=== PATIENT | female | born 1995 | race Caucasian/White ===

== ENCOUNTER 2017-06-08 12:50 | Emergency (ER) | payer OTHER ==
[2017-06-08 12:55] VITALS: BP 121/71; BMI 36.3
--- NOTE | 2017-06-08 13:17 | DR.GENAD ---
HPI - PCP Primary Care Physician: MONICA - HPI Comment HPI Comment: HISTORY BELOW. - Complaint/Symptoms Chief Complaint Doctors Comments: LEFT FLANK AND BACK PAIN WITH NAUSEA AND VOMITING. SEEN IN L AND D IN [facility] TODAY. GIVEN MED AND DISCHARGE WITH PAIN MED. STILL HURTING. NO FEVER. DENIES ABDOMINAL PAIN OR VAGINAL BLEEDING. PATIENT IS BEING FEELING NORMAL MOVEMENT. Chief Complaint:: PATIENT HAS BEEN TO ER IN [place]. SHE STATED THAT SHE HAS PASTED OUT AND VOMITING. - Nurses notes reviewed Nurses Notes Review: Yes - Source History Provided: Patient - Mode of Arrival Mode of Arrival: Ambulatory - Timing Onset of Chief Complaint: 06/08/17 Came on: Suddenly - Duration Duration: Constant Duration: Days - Severity Severity: Moderate PMH - PMH Past Medical History: No Past Surgical History: Yes Surgical History: [employer]IVE Surgery - Family History History of Family Medical Conditions: Yes Family Medical History: Cancer, Hypertension - Social History Does patient currently use any type of tobacco product: No Have you used tobacco products in the last 12 months: No Type of Tobacco Use: None Does any household member use tobacco: No Alcohol Use: None Do you use any recreational Drugs:: No Lives With: Family Lives Where: Home - infectious screening In the last 2 months have you had wt loss of >10#?: NO Have you had fever, night sweats or hemotysis?: No Have you traveled outside the country in the last 6 months?: No Isolation: Standard ROS - Review of Systems Constitutional: Weakness, Fatigue Eyes: Blurred Vision. negative: Eye Pain, Discharge ENTM: No Symptoms Reported Respiratoy: No Symptoms Reported Cardiovascular: No Symptoms Reported Gastrointestinal/Abdominal: No Symptoms Reported Genitourinary: No Symptoms Reported Neurological: Weakness, Dizziness Musculoskeletal: Back Pain Integumentary: No Symptoms Reported Hematologic/Lymphatic: No Symptoms Reported Endocrine: No Symptoms Reported All Other Systems: Reviewed and Negative PE - Vital Signs Vitals: Temperature 97.5 F Pulse Rate 103 Respiratory Rate 20 Blood Pressure 121/71 O2 Sat by Pulse Oximetry 99 - General Limitations: No Limitations General Appearance: Alert - Head Head Exam: Normal Inspection - Eyes Eye exam: Normal Appearance - ENT ENT Exam: Normal External Ear Exam External Ear Exam: Normal External Inspection TM/Canal Exam: Bilateral Normal Nose Exam: Normal Nose Exam Mouth Exam: Normal Inspection Throat Exam: Normal Inspection - Neck Neck Exam: Trachea Midline - Chest Chest Inspection: Symmetric Chest Wall Rise - Respiratory Respiratory Exam: Normal Lung Sounds Bilat Respiratory Exam: Bilateral Clear to Auscultation - Cardiovascular Cardiovascular Exam: Regular Rate, Normal Rhythm, Normal Heart Sounds - Abdominal Exam Abdominal Exam: Normal Bowel Sounds, Soft. negative: Tenderness - Extremities Extremities Exam: Normal Inspection - Back Back Exam: (L) CVA Tenderness - Neurologic Neurological Exam: Alert, Oriented X3 - Psychiatric Psychiatric Exam: Anxious - Skin Skin Exam: Normal Color MDM - Differential Diagnosis Differential Diagnosis: BACK PAIN Course - Treatment Treatment: PAIN MED IN ED HERE, 1L NS IV BOLUS, MORPHIN AND ZOFRAN IV IN ED HERE. ABDOMINAL US DONE IN ED. PATIENT STILL IN PAIN. - Consultation Consultation Comments: DISCUSS PATIENT WITH DR. MENDEZ. PATIENT TO GO TO [facility] FOR FURTHER MANAGEMENT. - Education/Counseling Education/Counseling: Patient, Family, Education Educated On: Treatment, Diagnosis, Needs for Follow Up ROR - Labs Reviewed Laboratory Results Reviewed?: Yes Result Diagrams: 06/08/17 16:01 06/08/17 16:01 Laboratory: WBC 16.5 X10^3/uL (3.6-10.0) H 06/08/17 16:01 RBC 3.97 X10^6/uL (3.5-5.4) 06/08/17 16:01 Hgb 11.9 g/dL (12.0-16.0) L 06/08/17 16:01 Hct 34.2 % (36.0-47.0) L 06/08/17 16:01 MCV 86.1 fL (80.0-100.0) 06/08/17 16:01 MCH 30.0 pg (27.0-34.0) 06/08/17 16:01 MCHC 34.8 g/dL (33.0-35.0) 06/08/17 16:01 RDW 13.3 % (11.6-16.5) 06/08/17 16:01 Plt Count 283 X10^3/uL (150.0-450.0) 06/08/17 16:01 MPV 7.6 fL (7.4-11.0) 06/08/17 16:01 Neut % 87.5 % (42.0-75.0) H 06/08/17 16:01 Lymph % 7.5 % (21.0-51.0) L 06/08/17 16:01 [place] % 4.8 % (0.0-13.0) 06/08/17 16:01 Eos % 0.0 % (0.9-2.9) L 06/08/17 16:01 Baso % 0.2 % (0.2-1.0) 06/08/17 16:01 Neut # 14.4 x10^3/uL (2.2-4.8) H 06/08/17 16:01 Lymph # 1.2 X10^3/uL (1.3-2.9) L 06/08/17 16:01 Island # 0.8 x10^3/uL (0.3-0.8) 06/08/17 16:01 Eos # 0.0 x10^3/uL (0.0-0.2) 06/08/17 16:01 Baso # 0.0 X10^3/uL (0.0-0.1) 06/08/17 16:01 Absolute Nucleated RBC 0.0 /100WBC 06/08/17 16:01 Sodium 141 mmol/L (136-145) 06/08/17 16:01 Corrected Sodium TNP 06/08/17 16:01 Potassium 3.9 mmol/L (3.5-5.1) 06/08/17 16:01 Chloride 107 mmol/L (98-107) 06/08/17 16:01 Carbon Dioxide 25.0 mmol/L (21-32) 06/08/17 16:01 BUN 8 mg/dL (7-18) 06/08/17 16:01 Creatinine 0.67 mg/dL (0.55-1.02) 06/08/17 16:01 Est GFR (MDRD) Af Amer > 60 (>60) 06/08/17 16:01 Est GFR (MDRD) Non-Af > 60 (>60) 06/08/17 16:01 Glucose 88 mg/dL (65-99) 06/08/17 16:01 Calcium 8.7 mg/dL (8.5-10.1) 06/08/17 16:01 Corrected Calcium 9.8 mg/dL (8.5-10.1) 06/08/17 16:01 Total Bilirubin 0.30 mg/dL (0.2-1.0) 06/08/17 16:01 AST 14 Units/L (15-37) L 06/08/17 16:01 ALT 12 Units/L (12-78) 06/08/17 16:01 Alkaline Phosphatase 83 Units/L (46-116) 06/08/17 16:01 Total Protein 6.7 g/dL (6.4-8.2) 06/08/17 16:01 Albumin 2.6 g/dL (3.4-5.0) L 06/08/17 16:01 Globulin 4.1 g/dL (2.5-4.5) 06/08/17 16:01 Albumin/Globulin Ratio 0.6 Ratio (1.1-2.1) L 06/08/17 16:01 Specimen Type Clean catch urine 06/08/17 16:25 Urine Color Dark yellow (YELLOW) 06/08/17 16:25 Urine Appearance Clear (CLEAR) 06/08/17 16:25 Urine pH 6.0 (5.0 - 8.0) 06/08/17 16:25 Ur Specific [place] 1.020 (1.000-1.030) 06/08/17 16:25 Urine Protein 1+ (NEGATIVE) 06/08/17 16:25 Urine Glucose (UA) Negative (NEGATIVE) 06/08/17 16:25 Urine Ketones 3+ (NEGATIVE) 06/08/17 16:25 Urine Occult Blood 3+ (NEGATIVE) 06/08/17 16:25 Urine Nitrite Negative (NEGATIVE) 06/08/17 16:25 Urine Bilirubin Negative (NEGATIVE) 06/08/17 16:25 Urine Urobilinogen Normal (NORMAL) 06/08/17 16:25 Ur Leukocyte Esterase 1+ (NEGATIVE) 06/08/17 16:25 Urine RBC 15-25 /HPF (NEGATIVE) 06/08/17 16:25 Urine WBC 3-6 /HPF (NEGATIVE) 06/08/17 16:25 Ur Squamous Epith Cells Many /HPF (NEGATIVE) 06/08/17 16:25 Urine Bacteria 1+ /HPF (NEGATIVE) 06/08/17 16:25 Hyaline Casts Few /LPF (NEGATIVE) 06/08/17 16:25 Urine Mucus Moderate /HPF (NEGATIVE) 06/08/17 16:25 Ur Culture Indicated? No/not indicated 06/08/17 16:25 - XRAY XRAY Interpreted by: Radiologist XRAY Findings: REPORT DISCUSS WITH PATIENT. - Diagnosis Discharge Problem: Back pain affecting Qualifiers: Trimester: second trimester Qualified Code(s): O26.892 - Other specified related conditions, second trimester; M54.9 - Dorsalgia, unspecified Hematuria Qualifiers: Hematuria type: unspecified type Qualified Code(s): R31.9 - Hematuria, unspecified - Discharge Plan Disposition: HOME, SELF-CARE Condition: Stable - Follow ups/Referrals Follow ups/Referrals: CIPRIANO ANDERSON [Primary Care Provider] - 3 days - Instructions Instructions: Hematuria, Pediatric, Back Pain in Additional Instructions: RETURN TO ED IF WORSE. TO [facility] FOR DR. MENDEZ TO FOLLOW UP.
--- NOTE | 2017-06-08 14:25 | US ---
HISTORY: 26 weeks with left flank pain. Study: Complete abdominal ultrasound. Comparison: None. Technique: Multiple maldonado scale and color flow Doppler images of the abdomen were obtained. Findings: The liver is normal in echotexture. No intraparenchymal mass or intrahepatic biliary ductal dilatat ion can be identified. The gallbladder is unremarkable in its appearance. Reverberation artifact is seen over the gallbladder lumen on some sequences. The common bile duct is normal measuring 4 mm. The visualized portions of the pancreas and spleen are normal in their echotexture and size. The right and left kidney are normal in echotexture and size. The right kidney measures 8.6 cm. The left kidney measures 9.7 cm. Mild hydronephrosis of the left kidney. No obvious mass or obstructing stone. No hydronephrosis of the right kidney. The visualized portions of the abdominal aorta are normal in size without aneurysmal dilatation. Th e inferior vena cava is unremarkable as well. IMPRESSION: 1. Mild hydronephrosis of the left kidney without obvious obstructing stone or mass. This may be se condary to patient's . 2. Remaining exam is unremarkable. Reported By:
[2017-06-08] MEDS ORDERED: NS 1000 ML 1,000 ML ONE (14:39)
[2017-06-08] MEDS ORDERED: NS 1000 ML 1,000 ML IV ONE (15:48)
[2017-06-08 16:14] LABS: BASOPHILS % (AUTO) 0.2 % (0.2-1.0); HEMATOCRIT 34.2 % (36.0-47.0); HEMOGLOBIN 11.9 g/dL (12.0-16.0); LYMPHOCYTES # (AUTO) 1.2 X10^3/uL (1.3-2.9); LYMPHOCYTES % (AUTO) 7.5 % (21.0-51.0); MEAN CORPUSCULAR HGB CONC 34.8 g/dL (33.0-35.0); MEAN CORPUSCULAR VOLUME 86.1 fL (80.0-100.0); MEAN PLATELET VOLUME 7.6 fL (7.4-11.0); MONOCYTES # (AUTO) 0.8 x10^3/uL (0.3-0.8); MONOCYTES % (AUTO) 4.8 % (0.0-13.0); NEUTROPHILS # (AUTO) 14.4 x10^3/uL (2.2-4.8); NEUTROPHILS % (AUTO) 87.5 % (42.0-75.0); PLATELET COUNT 283 X10^3/uL (150.0-450.0); RED BLOOD COUNT 3.97 X10^6/uL (3.5-5.4); RED CELL DISTRIBUTION WIDTH 13.3 % (11.6-16.5); WHITE BLOOD COUNT 16.5 X10^3/uL (3.6-10.0)
[2017-06-08 16:27] LABS: ALANINE AMINOTRANSFERASE 12 Units/L (12-78); ALBUMIN 2.6 g/dL (3.4-5.0); ALKALINE PHOSPHATASE 83 Units/L (46-116); ASPARTATE AMINO TRANSFERASE 14 Units/L (15-37); BLOOD UREA NITROGEN 8 mg/dL (7-18); CALCIUM 8.7 mg/dL (8.5-10.1); CHLORIDE 107 mmol/L (98-107); COR CA(FOR HYPOALB) 9.8 mg/dL (8.5-10.1); CREATININE 0.67 mg/dL (0.55-1.02); GLUCOSE 88 mg/dL (65-99); SODIUM 141 mmol/L (136-145); TOTAL PROTEIN 6.7 g/dL (6.4-8.2); eGFR BLACK RACES > 60 (>60); eGFR NON BLACK RACES > 60 (>60)
[2017-06-08] MEDS ORDERED: MORPHINE SULFATE INJ 4 MG IVP ONE (16:43)
[2017-06-08] MEDS ORDERED: ZOFRAN INJ 4 MG VIAL IVP ONE (16:43)
[2017-06-08] MEDS ORDERED: MORPHINE SULFATE INJ 4 MG ONE (16:44)
[2017-06-08] MEDS ORDERED: ZOFRAN INJ 4 MG VIAL ONE (16:44)
[2017-06-08 16:57] LABS: BILIRUBIN,URINE NEGATIVE (NEGATIVE); BLOOD/HEMOGLOBIN,URINE 3+ (NEGATIVE); GLUCOSE, URINE NEGATIVE (NEGATIVE); KETONES,URINE 3+ (NEGATIVE); LEUKOCYTE ESTERASE ,URINE 1+ (NEGATIVE); NITRITES,URINE NEGATIVE (NEGATIVE); PROTEIN,URINE 1+ (NEGATIVE); UROBILINOGEN,URINE NORMAL (NORMAL)
[2017-06-08 17:06] LABS: APPEARANCE,URINE CLEAR (CLEAR); COLOR,URINE DARK YELLOW (YELLOW); RBC,URINE 15-25 /HPF (NEGATIVE)
[2017-06-08 17:07] LABS: BACTERIA,URINE 1+ /HPF (NEGATIVE); HYALINE CASTS, URINE FEW /LPF (NEGATIVE); MUCUS,URINE MODERATE /HPF (NEGATIVE); SQUAMOUS EPITHELIAL CELL,UR MANY /HPF (NEGATIVE)
[2017-06-08] MEDS ORDERED: ROCEPHIN VIAL 1 GM 1 GM in NS 50 ML IV + SPIKE MINIBAG* 50 ML IV ONE (17:35)
== END 2017-06-08 18:03 | disposition home or self-care (01) ==
LOC: ER 13:01
DX: O26.892 Other specified pregnancy related conditions, second trimester (principal); M54.89 Other dorsalgia; R31.9 Hematuria, unspecified; R10.84 Generalized abdominal pain
CPT/HCPCS: 36415; 76700; 80053; 81001; 85025; 96365; 96374; 96375; 99284; A4222; J2270; J2405